=== PATIENT | male | born 1965 | race Caucasian/White ===

== ENCOUNTER 2017-05-16 11:19 | Emergency (ER) | payer BC ==
[~2017-05-16] VITALS: Ht 172.7 cm; Wt 105.0 kg
[2017-05-16 11:21] VITALS: Ht 172.7 cm; Wt 105.0 kg
[2017-05-16] MEDS ORDERED: HYDR-3652 PO (11:37)
[2017-05-16] MEDS ORDERED: ATEN-51 PO (11:37)
[2017-05-16] MEDS ORDERED: HYD25 PO (11:37)
[2017-05-16] MEDS ORDERED: AMLO5TAB4 PO (11:37)
--- NOTE | 2017-05-16 11:41 | ERD ---
ER Documentation Chief Complaint Date/Time DATE: 05/16/17 TIME: 11:39 Chief Complaint sore throat x 4 days HPI 51-year-old male history of essential hypertension noncompliant with medications for several months who presents the emergency room with sore throat. He describes 2 days of symptoms of dry nonproductive cough, subjective fevers with a fever at home of 101. Describes a sore throat and painful swallowing. He denies any difficulty breathing, no drooling. No neck stiffness or rash. He denies any chest pain or headache. ROS All systems reviewed and are negative except as per history of present illness. Medications Home Meds Active Scripts Hydrocodone Bit/Homatrop Me-Br (Tussigon 5-1.5 mg Tablet) 1 Each Tablet, 1 EACH PO TID Y for COUGH, #1 TAB Prov:SOPHIA GONZALEZ MD 05/16/17 Hydrochlorothiazide* (Hydrochlorothiazide*) 25 Mg Tab, 25 MG PO DAILY, #30 TAB Prov:SOPHIA GONZALEZ MD 05/16/17 Amlodipine Besylate* (Norvasc*) 5 Mg Tablet, 5 MG PO DAILY, #30 TAB Prov:SOPHIA GONZALEZ MD 05/16/17 Atenolol* (Atenolol*) 25 Mg Tablet, 25 MG PO DAILY, #30 TAB Prov:SOPHIA GONZALEZ MD 05/16/17 Allergies Allergies: Coded Allergies: No Known Allergy (Unverified , 05/16/17) FmHx Family History: No diabetes Physical Exam Vitals Vital Signs Date Time Temp Pulse Resp B/P Pulse Ox O2 Delivery O2 Flow Rate FiO2 05/16/17 11:21 97.7 88 18 205/125 97 Physical Exam General: Well developed, well nourished, no acute distress Head: Normocephalic, atraumatic. Eyes: Pupils equally reactive, EOM intact ENT: Moist mucous membranes posterior pharynx with slight erythema but uvula is midline, no tonsillar swelling or exudates, tolerating secretions, soft submental space Neck: Supple, no lymphadenopathy Respiratory: Lungs clear bilaterally, no distress Cardiovascular: RRR, no murmurs, rubs, or gallops Abdominal: Soft, non-tender, non-distended, no peritoneal signs : Deferred MSK: No edema, no unilateral swelling, 5/5 strength Neurologic: Alert and oriented, moving all extremities, normal speech, no focal weakness, no cerebellar signs Skin: No rash Psych: Normal mood Procedures/MDM The patient's clinical presentation is very consistent with an acute viral syndrome. The patient does not meet Centor criteria therefore no indication for antibiotics The patient does not exhibit any clinical signs or symptoms concerning for serious bacterial infection or systemic illness. Based on history and clinical exam findings the patient does not appear to have evidence of pneumonia, strep pharyngitis, urinary tract infection, bacteremia, sepsis, or meningitis. For these reasons I do not believe it is necessary to obtain laboratory testing or diagnostic imaging. I believe it would be appropriate for symptom control, and close outpatient primary care follow-up. Patient's blood pressure was elevated (>120/80) but appears stable without evidence of hypertensive emergency or urgency. The patient was counseled about the risks of hypertension and urged to pursue outpatient monitoring and therapy within a week with their primary care physician. The patient is noncompliant with his medications. I will initiate his antihypertensive medications that include atenolol, Norvasc, and hydrochlorothiazide. Patient is not familiar with his dosing. The patient will follow up with his primary care physician. At this time I feel the risks outweigh the benefits for rapidly lowering his blood pressure. He is asymptomatic and likely with prolonged elevated by blood pressure. The patient was informed of the seriousness of the elevation of his blood pressure and risks of stroke and heart attack. Patient verbalizes understanding. We discussed follow up with the patient's primary care doctor within 24 to 48 hours as needed. We also discussed return to the emergency room for worsening symptoms or worsening condition. Discharge Medications: Atenolol 25 mg, Norvasc 5 mg, hydrochlorothiazide 25 mg Hycodan Departure Diagnosis: Primary Impression: Hypertensive urgency Additional Impression: Acute viral pharyngitis Condition: Stable Patient Instructions: Hypertension, Established, Out Of Control, Pharyngitis, Viral Referrals: COMM[facility] YOU HAVE RECEIVED A MEDICAL SCREENING EXAM AND THE RESULTS INDICATE THAT YOU DO NOT HAVE A CONDITION THAT REQUIRES URGENT TREATMENT IN THE EMERGENCY DEPARTMENT. FURTHER EVALUATION AND TREATMENT OF YOUR CONDITION CAN WAIT UNTIL YOU ARE SEEN IN YOUR DOCTORS OFFICE WITHIN THE NEXT 1-2 DAYS. IT IS YOUR RESPONSIBILITY TO MAKE AN APPOINTMENT FOR FOLOW-UP CARE. IF YOU HAVE A PRIMARY DOCTOR --you should call your primary doctor and schedule an appointment IF YOU DO NOT HAVE A PRIMARY DOCTOR YOU CAN CALL OUR PHYSICIAN REFERRAL HOTLINE AT IF YOU CAN NOT AFFORD TO SEE A PHYSICIAN YOU CAN CHOSE FROM THE FOLLOWING [facility] [address] [facility] [address] [facility] [address] [facility] [address] [facility] [address] [facility] [facility] [address] [facility] YOU HAVE RECEIVED A MEDICAL SCREENING EXAM AND THE RESULTS INDICATE THAT YOU DO NOT HAVE A CONDITION THAT REQUIRES URGENT TREATMENT IN THE EMERGENCY DEPARTMENT. FURTHER EVALUATION AND TREATMENT OF YOUR CONDITION CAN WAIT UNTIL YOU ARE SEEN IN YOUR DOCTORS OFFICE WITHIN THE NEXT 1-2 DAYS. IT IS YOUR RESPONSIBILITY TO MAKE AN APPOINTMENT FOR FOLOW-UP CARE. IF YOU HAVE A PRIMARY DOCTOR --you should call your primary doctor and schedule and appointment IF YOU DO NOT HAVE A PRIMARY DOCTOR YOU CAN CALL OUR PHYSICIAN REFERRAL HOTLINE AT . IF YOU CAN NOT AFFORD TO SEE A PHYSICIAN YOU CAN CHOSE FROM THE FOLLOWING [facility]: [facility] [address] [place] [address] [facility] [address] [place] [address] [facility] [address] [place] [address] Additional Instructions: Call your primary care doctor TOMORROW for an appointment during the next 1 WEEK.Tell the departmental secretary that you were referred from this facility.See the doctor sooner or return here if your condition worsens before your appointment time. SOPHIA GONZALEZ MD May 16, 2017 11:41
== END 2017-05-16 12:22 | disposition home or self-care (01) ==
LOC: E/R 11:19
DX: I16.0 Hypertensive urgency (principal); J02.8 Acute pharyngitis due to other specified organisms; B97.89 Other viral agents as the cause of diseases classified elsewhere
CPT/HCPCS: 99284